=== PATIENT | male | born 1955 | race Caucasian/White ===

== ENCOUNTER → 2020-12-27 10:46 | Outpatient (BNVA) | payer BC, SELFPAY | PROVIDERS: Family Provider Nurse Practitioner Family; PCP Nurse Practitioner Family; Visit Provider Nurse Practitioner | DX: R11.2 Nausea with vomiting, unspecified (principal) | CPT/HCPCS: 87400 ==

== ENCOUNTER → 2021-05-31 10:42 | Outpatient (BNVA) | payer BC, SELFPAY | PROVIDERS: Family Provider Nurse Practitioner Family; PCP Nurse Practitioner Family; Visit Provider Nurse Practitioner | DX: R19.8 Other specified symptoms and signs involving the digestive system and abdomen (principal); J10.1 Influenza due to other identified influenza virus with other respiratory manifestations | CPT/HCPCS: 87400 ==

== ENCOUNTER → 2021-08-10 10:19 | Outpatient (BNVA) | payer BC, SELFPAY | PROVIDERS: Family Provider Nurse Practitioner Family; PCP Nurse Practitioner Family; Visit Provider Nurse Practitioner Family | DX: R35.0 Frequency of micturition (principal); B34.9 Viral infection, unspecified; R30.0 Dysuria | CPT/HCPCS: 81000 ==

== ENCOUNTER → 2021-09-30 09:20 | Outpatient (BNVA) | payer BC, SELFPAY | PROVIDERS: Family Provider Nurse Practitioner Family; PCP Nurse Practitioner Family; Visit Provider Family Medicine | DX: R30.0 Dysuria (principal); B34.9 Viral infection, unspecified; N41.0 Acute prostatitis; F41.9 Anxiety disorder, unspecified | CPT/HCPCS: 84153 ==

== ENCOUNTER → 2021-10-15 08:28 | Outpatient (BNVA) | payer BC, SELFPAY | PROVIDERS: Family Provider Nurse Practitioner Family; PCP Nurse Practitioner Family; Visit Provider Family Medicine | DX: Z20.822 Contact with and (suspected) exposure to COVID-19 (principal) | CPT/HCPCS: 87426 ==

== ENCOUNTER → 2021-11-04 08:14 | Outpatient (BNVA) | payer BC, SELFPAY | PROVIDERS: Family Provider Nurse Practitioner Family; PCP Nurse Practitioner Family; Visit Provider Family Medicine | DX: R30.0 Dysuria (principal); N41.0 Acute prostatitis | CPT/HCPCS: 84153 ==

== ENCOUNTER → 2022-02-24 10:33 | Outpatient (BNVA) | payer BC, SELFPAY | PROVIDERS: Family Provider Nurse Practitioner Family; PCP Nurse Practitioner Family; Visit Provider Family Medicine Adult Medicine | DX: J06.9 Acute upper respiratory infection, unspecified (principal); H66.91 Otitis media, unspecified, right ear; B34.9 Viral infection, unspecified; F32.A Depression, unspecified | CPT/HCPCS: 87400; 87426 ==

== ENCOUNTER → 2022-05-08 13:14 | Outpatient (BNVA) | payer BC, SELFPAY | PROVIDERS: Family Provider Nurse Practitioner Family; PCP Nurse Practitioner Family; Visit Provider Family Medicine | DX: N41.0 Acute prostatitis (principal) | CPT/HCPCS: 84153 ==

== ENCOUNTER 2022-05-21 08:31 | Outpatient (CLI) | payer BC, SELFPAY ==
--- NOTE | 2022-05-21 09:00 | CT_ITS ---
WS: [id number] CT LUMBAR SPINE, noncontrast. HISTORY: worsening left radicular pain p 6+ weeks TECHNIQUE: Contiguous 2.0 mm axial imaging are performed. Sagittal and coronal reformats are submitte d and reviewed. All CT scans at [facility] use at least one of these dose optimization techni ques: automated exposure control; mA and/or kV adjustment per patient size (includes targeted exams w here dose is matched to clinical indication); or iterative reconstruction. IV contrast: None DLP: 591.28 mGy.cm COMPARISON: None available. Slight straightening of the normal lumbar lordosis. Posterior alignment is normal. Moderate disc spac e narrowing at L4-5 with hypertrophic bone in the posterior L4-5 disc versus calcification. No fractu re. L1-2: No stenosis. L2-3: Mild annular disc bulge. Small LEFT foraminal disc protrusion but no nerve root contact. Mild f acet and ligamentum flavum hypertrophy. L3-4: Moderate annular disc bulging slightly greater to the RIGHT. RIGHT foraminal and extraforaminal disc protrusions. Moderate ligamentum flavum and facet joint arthritis. Mild central stenosis. Mild ligamentum flavum stenosis. Bilateral foraminal stenosis. There may be a small disc protrusion in the LEFT foramen. Moderate bilateral foraminal stenosis, LEFT greater than RIGHT. L4-5: Mild annular disc bulge. Mild osteophytic ridging with facet joint osteophytes. No central sten osis. Disc and osteophyte encroachment into the LEFT lateral recess. Osteophyte encroachment with mod erate LEFT foraminal stenosis. Facet joint osteophytes and disease contributing to the moderate LEFT foraminal stenosis. L5-S1: No stenosis. Moderate atherosclerotic plaque abdominal aorta. CT/CT lumbar spine wo con* [id number] IMPRESSION: 1. Moderate bilateral foraminal stenosis at L3-4, LEFT greater than RIGHT. 2. Moderate LEFT foraminal stenosis at L4-5 due to disc and facet joint osteop hytes. Significant encroachment upon the traversing LEFT L5 nerve root and the exiting L4 nerve root.
== END 2022-05-21 08:32 | disposition home or self-care (01) ==
LOC: RAD 08:46
PROVIDERS: PCP Family Medicine; Visit Provider Family Medicine
DX: M48.061 Spinal stenosis, lumbar region without neurogenic claudication (principal); M51.16 Intervertebral disc disorders with radiculopathy, lumbar region
CPT/HCPCS: 72131

== ENCOUNTER → 2022-07-21 09:26 | Outpatient (BNVA) | payer BC, MEDICARE, SELFPAY | PROVIDERS: PCP Family Medicine; Visit Provider Family Medicine | DX: M35.3 Polymyalgia rheumatica (principal) | CPT/HCPCS: 80053; 85025; 85651 ==

== ENCOUNTER → 2022-07-22 13:03 | Outpatient (BNVA) | payer BC, MEDICARE, SELFPAY | PROVIDERS: PCP Family Medicine; Visit Provider Family Medicine | DX: Z91.89 Other specified personal risk factors, not elsewhere classified (principal) | CPT/HCPCS: 86618; 86666; 86757 ==

== ENCOUNTER → 2022-08-11 15:31 | Outpatient (BNVA) | payer BC, MEDICARE, SELFPAY | PROVIDERS: PCP Family Medicine; Visit Provider Family Medicine | DX: M33.20 Polymyositis, organ involvement unspecified (principal) | CPT/HCPCS: 80053; 82550; 85025; 85651; 86140 ==

== ENCOUNTER → 2022-09-11 10:38 | Outpatient (BNVA) | payer BC, MEDICARE, SELFPAY | PROVIDERS: PCP Family Medicine; Visit Provider Family Medicine | DX: M35.3 Polymyalgia rheumatica (principal) | CPT/HCPCS: 86160; 86162; 86235; 86255; 86376; 86431 ==

== ENCOUNTER 2022-09-16 11:57 | Outpatient (CLI) | payer BC, SELFPAY | END 2022-09-16 11:58 | disposition home or self-care (01) | PROVIDERS: PCP Family Medicine; Visit Provider Psychiatry & Neurology Neurology | DX: R29.90 Unspecified symptoms and signs involving the nervous system (principal); M35.3 Polymyalgia rheumatica | CPT/HCPCS: 82085; 82306; 82550; 82746; 83735; 83921; 84439; 84443; 84481; 84591; 86592; 86780 ==

== ENCOUNTER → 2022-12-03 12:02 | Outpatient (BNVA) | payer BC, MEDICARE, SELFPAY | PROVIDERS: PCP Family Medicine; Visit Provider Internal Medicine | DX: M35.3 Polymyalgia rheumatica (principal); M19.042 Primary osteoarthritis, left hand | CPT/HCPCS: 73120; 81003; 83520; 85651; 86036; 86140; 86160; 86200; 86704; 86803; 87340 ==

== ENCOUNTER 2024-04-07 10:46 | Emergency (ER) | payer MEDICARE, SELFPAY ==
[2024-04-07] VITALS (9 sets, daily range): BP systolic 119–157; BP diastolic 64–76; PULSE 64–90; RESP 11–18; TEMP 36.7; O2SAT 95–98; BMI 26.6
--- NOTE | 2024-04-07 10:51 | ECG_ITS ---
[employer] Test Date: 2024-04-07 Pat Name: Yevgeniy Noriega Department: Room: Gender: Male Physiologist: : [id number] Requested By: Maggie Crowe Order Number: [id number] Quezada MD: Abdiel Vazquez M.D. Measurements Intervals [place] Rate: 91 P: 67 OH: 104 QRS: -84 QRSD: 137 T: 62 QT: 358 QTc: 442 Interpretive Statements SINUS RHYTHM WITH SHORT OH INTERVAL RIGHT BUNDLE BRANCH BLOCK [120+ ms QRS DURATION, UPRIGHT V1, 40+ ms S IN I/aVL/V4/V5/V6] LEFT ANTERIOR FASCICULAR BLOCK [QRS AXIS <= -45, QR IN I, RS IN II] POSSIBLE ANTERIOR MYOCARDIAL INFARCTION , OF INDETERMINATE AGE [30 ms Q WAVE IN V3/V4, OR R < 0.2 mV IN V4] No previous ECG available for comparison Electronically Signed On 04-07-2024 11:10:52 CRUSHER FOREMAN by Abdiel Vazquez M.D. [id number]
--- NOTE | 2024-04-07 10:51 | XR_ITS ---
WS: [id number] Exam: XR chest 1V portable [id number] Date/Time of Exam: 04/07/2024 11:13 AM Reason For Exam: Chest pain Comparison 06/03/2008. Lungs are clear and fully inflated. Normal cardiomediastinal silhouette. No ple ural effusions. Bony structures are intact. XR/XR chest 1V portable [id number] IMPRESSION: 1. No acute cardiopulmonary finding.
[2024-04-07 11:09] LABS: Basophils # 0.1 10^3/uL (0.0-0.1); Basophils % 0.7 %; Eosinophils # 0.1 10^3/uL (0.0-0.8); Eosinophils % 0.6 %; Hematocrit 45.5 % (37-53); Lymphocytes # 1.6 10^3/uL (0.8-4.8); Lymphocytes % 15.3 %; Mean Corpuscular HGB Conc 33.8 g/dL (30-55); Mean Corpuscular Hemoglobin 32.8 pg (27-33); Mean Corpuscular Volume 96.8 fl (82-101); Mean Platelet Volume 9.8 fL (7.4-10.4); Monocytes # 0.7 10^3/uL (0.2-0.9); Monocytes % 6.8 %; Neutrophils # 7.86 10^3/uL (1.8-7.7); Neutrophils % 76.2 %; Nucleated Red Blood Cells % 0 %; Platelet Count 199 10^3/cmm (157-399); Red Cell Distribution Width 12.1 % (12.1-15.1); White Blood Count 10.31 10^3/uL (3.29-11.43)
[2024-04-07 11:30] LABS: Troponin(5th) Baseline 12 ng/L (0-15)
[2024-04-07 11:40] LABS: Alanine Aminotransferase 16 U/L (0-41); Albumin Level 4.3 g/dL (3.5-5.2); Alkaline Phosphatase 118 U/L (40-130); Anion Gap 18.6 (5-19); Aspartate Amino Transferase 15 U/L (0-40); Blood Urea Nitrogen 14 mg/dL (8-23); Calcium 8.6 mg/dL (8.5-10.5); Carbon Dioxide 23 mmol/L (22-29); Chloride 99 mmol/L (98-107); Creatinine Clr Calc Pharmacy 82.0029; Globulin 2.4 g/dL (1.3-4.6); Glomerular Filtration Rate 84.2 mL/min (90-130); Glucose 139 mg/dL (65-115); NT Pro B Type Natriuretic Pept 57 pg/mL (0-125); Osmolality Calculated 285 mOsm/kg (285-295); Potassium 4.6 mmol/L (3.5-5.1); Sodium 136 mmol/L (136-145); Total Protein 6.7 g/dL (6.6-8.7)
--- NOTE | 2024-04-07 11:40 | ED_ITS ---
HPI - Chest Pain 2 General: Chief Complaint: Chest Pain Stated Complaint: chest pain Time Seen by Provider: 04/07/24 10:53 History of Present Illness: 68-year-old man with a history of polymy algia, depression and anxiety who presents emergency room with chest pain. He says this started yesterday. He took some Tums and some Aleve which improved. He felt like it might be related to him going kayaking against the 1 and the day before. However it does not hurt to palpate. It does hurt with movement and deep breathing. He describes an aching type pain in his central chest. No lower extremity swelling. No calf pain. No shortness of breath. No abdominal pain. No nausea or vomiting. There is some family history of heart disease but he has none personally. He does not smoke but he does vape. No fevers. No cough. Related Data Home Medications Medication Instructions Recorded Confirmed tamsulosin 0.4 mg capsule 0.4 mg PO QAM 04/07/24 04/07/24 Previous Rx's Medication Instructions Recorded alprazolam 0.5 mg tablet 0.5 mg PO DAILY PRN anxiety 30 01/08/24 days #30 tabs Allergies Allergy/AdvReac Type Severity Reaction Status Date / Time No Known Allergies Allergy Verified 07/15/23 08:31 Review of Systems 2 Narrative: Constitutional symptoms: Negative except as documented in HPI. Skin symptoms: Negative except as documented in HPI. Eye symptoms: Negative except as documented in HPI. ENMT symptoms: Negative except as documented in HPI. Respiratory symptoms: Negative except as documented in HPI. Cardiovascular symptoms: Negative except as documented in HPI. Gastrointestinal symptoms: Negative except as documented in HPI. Genitourinary symptoms: Negative except as documented in HPI. Musculoskeletal symptoms: Negative except as documented in HPI. Neurologic symptoms: Negative except as documented in HPI. Psychiatric symptoms: Negative except as documented in HPI. Endocrine symptoms: Negative except as documented in HPI. PFSH ED 2 PFSH: Medical History CRP elevated Lumbar disc disease with radiculopathy Depression Otitis media of right ear Anxiety Social History Smoking and tobacco/nicotine status: former use of tobacco/nicotine Second hand smoke exposure: No Alcohol intake: never Substance/Drug Use: never Physical Exam 2 Narrative: EXAM NARRATIVE: General: Alert, no acute distress. Skin: Warm, dry. Head: Normocephalic, atraumatic. Neck: Supple, trachea midline. Eye: Extraocular movements are intact. Ears, nose, mouth and throat: mucosa moist. Cardiovascular: Regular, Normal peripheral perfusion. Respiratory: Lungs are clear to auscultation, respirations are non-labored, breath sounds are equal, Symmetrical chest wall expansion. Gastrointestinal: Soft, Nontender, Non distended Musculoskeletal: Normal ROM, no deformity. Neurological: Alert and oriented, No focal neurological deficit observed. Psychiatric: Cooperative, appropriate mood & affect. Course 2 Vital Signs: Vital signs: Vital Signs Temperature 98.1 F 04/07/24 10:54 Pulse Rate 72 04/07/24 14:00 Respiratory Rate 11 L 04/07/24 13:30 Blood Pressure 119/64 04/07/24 14:00 Pulse Oximetry 97 04/07/24 14:00 Oxygen Delivery Me thod Room Air 04/07/24 14:00 MDM - Chest Pain Medical Decision Making Differential diagnosis for patient with chest pain includes but is not limited to and based on the above HPI, review of systems and physical exam: Pneumonia. unstable angina. angina. Acute coronary syndrome / CO. Pulmonary embolism. Costochondritis / musculoskeletal. Pleurisy. Pericarditis. Esophageal spasm. Pancreatis. Cholecystitis. Orders placed to evaluate differential diagnosis based on the above differential, HPI and physical exam EKG: Time 1049. Rate 91. Normal sinus rhythm, nonspecific ST changes/Q waves., no ectopy, right bundle branch block, left anterior fascicular block, This was reviewed and interpreted by myself the ER physician at 1052. No previous EKGs for comparison Repeat EKG: Time 1244. Rate 72. Normal sinus rhythm, No ST-T changes, no ectopy, right bundle branch block, left anterior fascicular block, This was reviewed and interpreted by myself the ER physician at 1248. No changes from previous EKG done in the emergency room today. Chest x-ray: No acute process. No infiltrate. No pneumothorax. This was reviewed and interpreted by myself the emergency room physician. I also reviewed the radiology report. Lab Review: Laboratory results were reviewed and interpreted by myself the emergency room physician. Lab work is unremarkable. No leukocytosis. No anemia. No renal failure. Serial troponins are negative and unchanged. [facility]ART [email or web address] 04/07[facility]2024 All calculations should be rechecked by clinician prior to use RESULT SUMMARY: 3 points HEART Pathway Score Low risk 0.9-1.7% 30-day MACE Repeat troponin at 2 hours and if negative, discharge home with outpatient follow-up. INPUTS: History ?> 0 = Slightly suspicious EKG ?> 0 = Normal Age ?> 2 = >=5 Risk factors ?> 1 = 1-2 risk factors Initial troponin ?> 0 = <=ormal limit I reviewed the patient's medical record. Reexamination: Patient remained stable. No increased work of breathing. No altered mental status. No focal motor deficits. He describes the pain is more musculoskeletal worse with movement. He is having a bit of an exacerbation of his polymyalgia symptoms. [place] given here. He normally takes Vicodin at home he says Assessment and plan: Noncardiac chest pain Polymyalgia ?[place] in the emergency room. - Discharged home - Discussed plan with patient. Answered any questions. - Evaluation and treatment of this problem were appropriate in the emergency setting. Lab Data 04/07/24 11:04 04/07/24 11:04 Radiology Impressions Chest X-Ray 04/07/24 10:51 IMPRESSION: 1. No acute cardiopulmonary finding. Laboratory Results WBC 10.31 10^3/uL (3.29-11.43) 04/07/24 11:04 RBC 4.70 10^6/uL (3.85-5.65) 04/07/24 11:04 Hgb 15.40 g/dL (11.27-16.99) 04/07/24 11:04 Hct 45.5 % (37-53) 04/07/24 11:04 MCV 96.8 fl (82-101) 04/07/24 11:04 MCH 32.8 pg (27-33) 04/07/24 11:04 MCHC 33.8 g/dL (30-55) 04/07/24 11:04 RDW 12.1 % (12.1-15.1) 04/07/24 11:04 Plt Count 199 10^3/cmm (157-399) 04/07/24 11:04 MPV 9.8 fL (7.4-10.4) 04/07/24 11:04 Neut % (Auto) 76.2 % 04/07/24 11:04 Lymph % (Auto) 15.3 % 04/07/24 11:04 [place] % (Auto) 6.8 % 04/07/24 11:04 Eos % (Auto) 0.6 % 04/07/24 11:04 Baso % (Auto) 0.7 % 04/07/24 11:04 Neut # (Auto) 7.86 10^3/uL (1.8-7.7) H 04/07/24 11:04 Lymph # (Auto) 1.6 10^3/uL (0.8-4.8) 04/07/24 11:04 [place] # (Auto) 0.7 10^3/uL (0.2-0.9) 04/07/24 11:04 Eos # (Auto) 0.1 10^3/uL (0.0-0.8) 04/07/24 11:04 Baso # (Auto) 0.1 10^3/uL (0.0-0.1) 04/07/24 11:04 Nucleated RBC % (auto) 0 % 04/07/24 11:04 Nucleated RBCs # 0.0 /100WBC 04/07/24 11:04 Sodium 136 mmol/L (136-145) 04/07/24 11:04 Potassium 4.6 mmol/L (3.5-5.1) 04/07/24 11:04 Chloride 99 mmol/L (98-107) 04/07/24 11:04 Carbon Dioxide 23 mmol/L (22-29) 04/07/24 11:04 Anion Gap 18.6 (5-19) 04/07/24 11:04 BUN 14 mg/dL (8-23) 04/07/24 11:04 Creatinine 0.9 mg/dL (0.7-1.2) 04/07/24 11:04 GFR Calculation 84.2 mL/min (90-130) L 04/07/24 11:04 Glucose 139 mg/dL (65-115) H 04/07/24 11:04 Calculated Osmolality 285 mOsm/kg (285-295) 04/07/24 11:04 Calcium 8.6 mg/dL (8.5-10.5) 04/07/24 11:04 Total Bilirubin 1.0 mg/dL (0.15-1.2) 04/07/24 11:04 AST 15 U/L (0-40) 04/07/24 11:04 ALT 16 U/L (0-41) 04/07/24 11:04 Alkaline Phosphatase 118 U/L (40-130) 04/07/24 11:04 Troponin T Baseline 12 ng/L (0-15) 04/07/24 11:04 Troponin T 120 Minute 11.02 ng/L (0-15) 04/07/24 13:20 Delta Troponin T -0.98 ABS# (0-10) L 04/07/24 13:20 NT-Pro-B Natriuret Pep 57 pg/mL (0-125) 04/07/24 11:04 Total Protein 6.7 g/dL (6.6-8.7) 04/07/24 11:04 Albumin 4.3 g/dL (3.5-5.2) 04/07/24 11:04 Globulin 2.4 g/dL (1.3-4.6) 04/07/24 11:04 All radiology interpretation(s) finalized by discharge Clincial Decision Support The following clinical decision support tools were used to aid in care of the patient HEART Score -> History: Slightly Suspicous, EKG: Normal, Age: 65 or more yrs, Risk Factors: 1 or 2 Risk Factors, Troponin: Baseline Trop <16 ng/L. Resulting HEART Score: 3. Discharge Plan Discharge Patient Disposition: Home Clinical Impression: Non-cardiac chest pain, Polymyalgia Condition: Stable Prescriptions: No Action alprazolam 0.5 mg tablet 0.5 mg PO DAILY PRN (Reason: anxiety) 30 Days Qty: 30 5RF tamsulosin 0.4 mg capsule 0.4 mg PO QAM Rx Instructions: take 1 capsule BY MOUTH EVERY DAY FOR difficulty urinating Discharge Orders: Discharge ED (Routine); Ordered 04/07/24 Ordered By: Maggie Mosquera Referrals: Jay Jay Arana MD [Primary Care Provider] - Discharge Diet: Usual diet Discharge Activity: Increase activity as tolerated Patient Instructions: Opioid Safety, Pain Management Activity Restrictions/Additional Instructions: Thank you for choosing [facility] for your healthcare needs today. Please realize this is an emergency room and that we are providing you with a medical screening exam and this may not be complete and all inclusive of all the testing and or work up that you may need to determine your ailment or severity of your illness. You have been screened and evaluated and felt safe for discharge. Health conditions do change or evolve sometimes and as such it is important that you follow up with your Primary Doctor to be re checked, 3-5 days is a general good time frame for follow up. You are always welcome to return to the ED for re assessment if your symptoms are worsening or you have new concerns Coding Level of Care Code ED Secondary Spanish Teacher for Vipul Cullen
[2024-04-07] MEDS: aspirin 81 mg Chew Tablet 324 MG PO (11:51)
[2024-04-07] MEDS: nitroglycerin 0.4 mg sublingual Tablet SUBLINGUAL (11:52)
--- NOTE | 2024-04-07 12:44 | ECG_ITS ---
[employer] Test Date: 2024-04-07 Pat Name: Yevgeniy Noriega Department: Room: Gender: Male Chip Frier: : 1955 Requested By: Maggie Crowe Order Number: [id number] Pilar MD: Abdiel Vazquez M.D. Measurements Intervals [place] Rate: 72 P: 73 OH: 134 QRS: -75 QRSD: 136 T: 36 QT: 399 QTc: 438 Interpretive Statements SINUS RHYTHM RIGHT BUNDLE BRANCH BLOCK [120+ ms QRS DURATION, UPRIGHT V1, 40+ ms S IN I/aVL/V4/V5/V6] LEFT ANTERIOR FASCICULAR BLOCK [QRS AXIS <= -45, QR IN I, RS IN II] POSSIBLE ANTERIOR MYOCARDIAL INFARCTION , OF INDETERMINATE AGE [30 ms Q WAVE IN V3/V4, OR R < 0.2 mV IN V4] Compared to ECG 04/07/2024 10:49:53 Short [place] interval no longer present Myocardial infarct finding still present Electronically Signed On 04-09-2024 13:38:21 COMMERCIAL PROJECT MANAGER by Abdiel Vazquez M.D. [id number]
[2024-04-07 14:14] LABS: Troponin 5 2HR 11.02 ng/L (0-15); Troponin 5 2HR Delta -0.98 ABS# (0-10)
[2024-04-07] MEDS: HYDROcodone-acetaminophen 10-325 mg Tablet 1 TAB PO (14:22)
== END 2024-04-07 14:36 | disposition home or self-care (01) ==
PROVIDERS: Emergency Provider Emergency Medicine; PCP Family Medicine
DX: R07.89 Other chest pain (principal); M35.3 Polymyalgia rheumatica; Z87.891 Personal history of nicotine dependence
CPT/HCPCS: 36415; 71045; 80053; 83880; 84484; 85025; 93005; 99285